=== PATIENT | female | born 1965 | race Caucasian/White ===

== ENCOUNTER 2016-09-11 17:51 | Emergency (ER) | payer OTHER | END 2016-09-11 20:02 | disposition home or self-care (01) | LOC: ER 17:51 | DX: R55 Syncope and collapse (principal); R20.9 Unspecified disturbances of skin sensation; E78.5 Hyperlipidemia, unspecified; G43.909 Migraine, unspecified, not intractable, without status migrainosus; G62.9 Polyneuropathy, unspecified; Z90.710 Acquired absence of both cervix and uterus; F17.210 Nicotine dependence, cigarettes, uncomplicated; Z88.1 Allergy status to other antibiotic agents; Z88.8 Allergy status to other drugs, medicaments and biological substances | CPT/HCPCS: 36415; 96360; J2060 ==

== ENCOUNTER 2016-11-19 09:27 | Emergency (ER) | payer OTHER | END 2016-11-19 12:51 | disposition home or self-care (01) | LOC: ER 09:27 | DX: J20.9 Acute bronchitis, unspecified (principal); E78.5 Hyperlipidemia, unspecified; F17.210 Nicotine dependence, cigarettes, uncomplicated; Z88.1 Allergy status to other antibiotic agents; Z88.2 Allergy status to sulfonamides; Z88.8 Allergy status to other drugs, medicaments and biological substances; Z79.899 Other long term (current) drug therapy | CPT/HCPCS: 36415; 96374 ==